=== PATIENT | female | born 1965 | race Caucasian/White ===

== ENCOUNTER → 2023-11-01 11:13 | Outpatient (CLI) | payer BC, SELFPAY ==
--- NOTE | 2023-11-01 11:16 | DI.RAD.S_ITS ---
PROCEDURE: FL BARIUM SWALLOW INDICATIONS: Other chest pain COMPARISON: None. FINDINGS: Function: Tertiary esophageal contractions are present. No elicited gastroesophageal reflux. There is somewhat delayed transit of a calibrated barium tablet through the esophagus into the stomach. Morphology: Air-contrast images demonstrate normal mucosal morphology. Single contrast views show no esophageal strictures, extrinsic mass effects, or diverticula. Limited images of the stomach demonstrate normal appearance. IMPRESSION: Tertiary esophageal contractions with somewhat delayed passage of barium tablet. If indicated, endoscopy may provide additional diagnostic benefit. Dictated by: Curtis Plascencia M.D. on 11/01/2023 at 14:43 Approved by: Curtis Plascencia M.D. on 11/01/2023 at 14:45
== END ==
PROVIDERS: PCP Internal Medicine; Referring Provider Internal Medicine; Visit Provider Internal Medicine
DX: R07.89 Other chest pain (principal)
CPT/HCPCS: 74220